=== PATIENT | male | born 1980 | race Two or more races ===

== ENCOUNTER 2019-10-28 15:33 | Emergency (ER) | payer SELFPAY ==
[~2019-10-28] VITALS: Ht 188 cm; Wt 81.6 kg
[~2019-10-28 15:33] MED LIST: CITA10TA17; DIVA125T2; QUET25TA
--- NOTE | 2019-10-28 15:35 | NUR ---
LORELEI Hardin FROM [facility] C/O CHRONIC R LEG PAIN, TO ER BED 10, HOOKED TO MONITOR, AWAITING MD DAVIS.
--- NOTE | 2019-10-28 16:07 | NUR ---
DR SCHNEIDER AT BEDSIDE
--- NOTE | 2019-10-28 16:20 | NUR ---
SALES SERVICE EXECUTIVE AT BEDSIDE FOR XRAY
--- NOTE | 2019-10-28 17:06 | NUR ---
OLINDA WRAP ON L KNEE BY TIME STUDY CLERK DONE
[2019-10-28] MEDS ORDERED: IBUPROFEN 600 MG TABLET PO ONE ×2 (17:26→17:30)
--- NOTE | 2019-10-28 17:31 | NUR ---
Patient given written and verbal discharge instructions. Patient verbalizes understanding of instructions. Patient is ambulatory with steady gait. Refuses offer of residential placement. Patient given list of available shelters in surrounding area. Patient in proper clothing upon discharge, all belongings returned, name band removed.
[2019-10-28 17:32] VITALS: BP 128/84
== END 2019-10-28 17:32 | disposition home or self-care (01) ==
LOC: ER 15:42
DX: M25.562 Pain in left knee (principal); G89.29 Other chronic pain; Z60.2 Problems related to living alone; Z79.899 Other long term (current) drug therapy
CPT/HCPCS: 73564-TC